=== PATIENT | male | born 1975 | race Caucasian/White ===

== ENCOUNTER 2018-01-18 17:36 | Emergency (ER) | payer OTHER ==
[~2018-01-18] VITALS: Ht 180.3 cm; Wt 104.3 kg
[2018-01-18] MEDS ORDERED: GLUCOPHAGE XR500 MG PO (17:55)
[2018-01-18] MEDS ORDERED: NOVOLOG100 UNIT/1 SUBQ (17:55)
[2018-01-18] MEDS ORDERED: CLOTRIMAZOLE 1%15 G1 TOP (17:56)
[2018-01-18] MEDS ORDERED: IBUPROFEN 800800 M1 PO (17:56)
[2018-01-18] MEDS ORDERED: NEOSPORIN + P28.3 GM TOP (17:57)
[2018-01-18] MEDS ORDERED: VAGICAINE CREAM28 GM TOP (17:57)
[2018-01-18] MEDS ORDERED: DIFLUCAN150 M1 PO (18:08)
[2018-01-18 18:25] LABS: URINE BILIRUBIN NEGATIVE (Negative); URINE BLOOD NEGATIVE (Negative); URINE CLARITY CLEAR; URINE COLOR YELLOW; URINE GLUCOSE-RANDOM 3+ (Negative); URINE KETONES NEGATIVE (Negative); URINE LEUKOCYTES-REFLEX NEGATIVE (Negative); URINE NITRITE-REFLEX NEGATIVE (Negative); URINE PROTEIN NEGATIVE (Negative); URINE SPECIFIC GRAVITY 1.025 (1.005-1.030); URINE UROBILINOGEN 0.2 E.U./dl (0.2-1.0)
[2018-01-18 18:37] VITALS: BP 146/105
== END 2018-01-18 18:39 | disposition home or self-care (01) ==
LOC: M.ERS 17:36
PROVIDERS: Nurse Practitioner Family
DX: B37.2 Candidiasis of skin and nail (principal); E11.65 Type 2 diabetes mellitus with hyperglycemia; F17.200 Nicotine dependence, unspecified, uncomplicated